=== PATIENT | female | born 1945 | race Caucasian/White ===

== ENCOUNTER → 2020-10-21 | Outpatient (CLI) | payer MEDICARE ==
[~2020-10-21] MED LIST: L-thyroxine PO; LEVO100T5 PO; LIOT0.5P PO; OXYC-302 PO; SIMV5TAB14 PO
== END | disposition home or self-care (01) ==
LOC: CFH 14:28
PROVIDERS: ATTEND Nurse Practitioner
DX: Z12.31 Encounter for screening mammogram for malignant neoplasm of breast (principal)
CPT/HCPCS: 77063; 77067

== ENCOUNTER 2021-07-03 11:09 | Day surgery (SDC) | payer MEDICARE ==
[~2021-07-03 11:09] MED LIST changes: -OXYC-302 PO; +OXYC1TAB14 PO
[2021-07-03] MEDS ORDERED: LIDOCAINE 2%, 20ML ONE (11:46)
== END 2021-07-03 12:16 | disposition home or self-care (01) ==
LOC: CACL 11:09
PROVIDERS: ATTEND Internal Medicine Cardiovascular Disease
DX: R55 Syncope and collapse (principal); R42 Dizziness and giddiness; I10 Essential (primary) hypertension; E78.5 Hyperlipidemia, unspecified; E03.9 Hypothyroidism, unspecified; Z79.890 Hormone replacement therapy; Z79.899 Other long term (current) drug therapy
CPT/HCPCS: 33285; C1764